=== PATIENT | male | born 1970 | race Caucasian/White ===

== ENCOUNTER 2017-09-08 15:35 | Inpatient (IN) | payer MEDICAID, MEDICARE, OTHER, SELFPAY ==
[~2017-09-08] VITALS: Ht 185.4 cm; Wt 81.2 kg
[2017-09-08 16:00] LABS: BASOPHILS # (AUTO) 0.04 x10^3/uL (0-0.1); BASOPHILS % (AUTO) 1 % (0-1); EOSINOPHILS % (AUTO) 4 % (1-7); LYMPHOCYTES # (AUTO) 1.96 x10^3/uL (1-3.4); LYMPHOCYTES % (AUTO) 35 % (22-44); MD NO; MEAN CORPUSCULAR HEMOGLOBIN 31.1 pg (27.5-34.5); MEAN CORPUSCULAR HGB CONC 33.7 g/dL (33.2-36.2); MEAN PLATELET VOLUME 8.6 fL (7.4-10.4); MONOCYTES # (AUTO) 0.49 x10^3/uL (0.2-0.8); MONOCYTES % (AUTO) 9 % (2-9); NEUTROPHILS # (AUTO) 2.86 x10^3/uL (1.8-6.8); NEUTROPHILS % (AUTO) 52 % (42-75); PLATELET COUNT 217 x10^3/uL (130-400); RED BLOOD COUNT 5.34 x10^6/uL (4.38-5.82); RED CELL DISTRIBUTION WIDTH 12.6 % (9.4-14.8)
[2017-09-08] MEDS ORDERED: METF500T4 PO (16:04)
[2017-09-08 16:07] LABS: INTERNATIONAL NORMALIZED RATIO 1.08 (0.93-1.1); PROTHROMBIN TIME 11.2 Seconds (9.6-11.5)
[2017-09-08 17:09] LABS: TROPONIN I < 0.015 ng/mL (0.000-0.045)
[2017-09-08 17:18] LABS: SALICYLATE LEVEL < 1.7 mg/dL (2.8-20.0)
[2017-09-08 17:19] LABS: ACETAMINOPHEN < 2 mcg/mL (10-30)
[2017-09-08 17:29] LABS: CULTURE INDICATED? NO; MICROSCOPIC NOT IND
[2017-09-08 17:42] LABS: AMPHETAMINE SCREEN, URINE Negative (Negative); BARBITURATE SCREEN, URINE Negative (Negative); BENZODIAZEPINE SCREEN, URINE Negative (Negative); CANNABINOID SCREEN, URINE Negative (Negative); COCAINE SCREEN, URINE Negative (Negative); METHADONE SCREEN, URINE Negative (Negative); OPIATE SCREEN, URINE Negative (Negative)
[2017-09-08] MEDS ORDERED: ONDANSETRON 2MG/ML, 2ML IVPush PRN (19:30)
[2017-09-08] MEDS ORDERED: ACETAMINOPHEN 325 MG TABLET PO PRN (19:30)
[2017-09-08] MEDS ORDERED: POLYETHYLENE GLYCOL 17 GM PACKET PO PRN (19:30)
[2017-09-08] MEDS ORDERED: BISACODYL 10 MG SUPP PR PRN (19:30)
[2017-09-08] MEDS ORDERED: OMNIPAQUE 350 MG/ML, 100ML BOTTLE ONE (19:32)
[2017-09-08 20:03] LABS: HEMOGLOBIN A1C 8.8 % (4.2-6.3)
[2017-09-08] MEDS: SODIUM CHLORIDE FLUSH 10ML SYR IVF SCH (22:30)
[2017-09-08] MEDS: metFORMIN 500 MG TABLET PO SCH (22:30)
[2017-09-08 22:32] VITALS: BP 109/77
[2017-09-08 22:33] VITALS: BP 99/70
[2017-09-08 22:35] VITALS: BP 113/46
[2017-09-08 22:56] LABS: MICROSCOPIC NOT IND
[2017-09-08 22:58] LABS: CULTURE INDICATED? NO
[2017-09-09] VITALS (8 sets, daily range): BP systolic 95–120; BP diastolic 59–79
[2017-09-09 05:10] LABS: BASOPHILS # (AUTO) 0.04 x10^3/uL (0-0.1); BASOPHILS % (AUTO) 1 % (0-1); EOSINOPHILS # (AUTO) 0.24 x10^3/uL (0-0.4); EOSINOPHILS % (AUTO) 4 % (1-7); LYMPHOCYTES # (AUTO) 1.67 x10^3/uL (1-3.4); LYMPHOCYTES % (AUTO) 30 % (22-44); MD NO; MEAN CORPUSCULAR HEMOGLOBIN 30.5 pg (27.5-34.5); MEAN CORPUSCULAR HGB CONC 33.2 g/dL (33.2-36.2); MEAN PLATELET VOLUME 8.8 fL (7.4-10.4); MONOCYTES # (AUTO) 0.51 x10^3/uL (0.2-0.8); MONOCYTES % (AUTO) 9 % (2-9); NEUTROPHILS # (AUTO) 3.17 x10^3/uL (1.8-6.8); NEUTROPHILS % (AUTO) 56 % (42-75); PLATELET COUNT 196 x10^3/uL (130-400); RED BLOOD COUNT 5.06 x10^6/uL (4.38-5.82); RED CELL DISTRIBUTION WIDTH 12.9 % (9.4-14.8)
[2017-09-09 05:20] LABS: ALBUMIN 3.5 g/dL (3.4-5.0); ANION GAP 6 mmol/L (5-15); CALCIUM 8.7 mg/dL (8.5-10.1); CHLORIDE 104 mmol/L (98-107)
[2017-09-09 05:26] LABS: ALANINE AMINOTRANSFERASE 31 U/L (12-78); ALKALINE PHOSPHATASE 98 U/L (45-117); BILIRUBIN,TOTAL 0.5 mg/dL (0.2-1.0); CREATININE 0.99 mg/dL (0.7-1.3); TOTAL PROTEIN 7.1 g/dL (6.4-8.2); TROPONIN I < 0.015 ng/mL (0.000-0.045)
[2017-09-09] MEDS ORDERED: METF10002 PO (05:45)
[2017-09-09] MEDS ORDERED: GLIP10TA13 PO (05:46)
[2017-09-09] MEDS ORDERED: SIMV10TA3 PO (05:46)
[2017-09-09] MEDS: SENNA/DOCUSATE TABLET PO SCH (09:00)
[2017-09-09] MEDS: SODIUM CHLORIDE FLUSH 10ML SYR IVF SCH ×2 (10:11→23:07)
[2017-09-09] MEDS: metFORMIN 500 MG TABLET PO SCH ×2 (10:11→23:07)
[2017-09-09 11:38] LABS: TROPONIN I < 0.015 ng/mL (0.000-0.045)
[2017-09-09] MEDS: HEPARIN 5,000 UNITS/ML, 1ML SQ SCH (17:29)
[2017-09-10 02:00] VITALS: BP 101/71
[2017-09-10] MEDS: HEPARIN 5,000 UNITS/ML, 1ML SQ SCH ×2 (04:39→12:30)
[2017-09-10 08:00] VITALS: BP 104/82
[2017-09-10] MEDS: SODIUM CHLORIDE FLUSH 10ML SYR IVF SCH (09:00)
[2017-09-10] MEDS: SENNA/DOCUSATE TABLET PO SCH (09:00)
[2017-09-10] MEDS: metFORMIN 500 MG TABLET PO SCH (09:15)
== END 2017-09-10 17:09 | disposition home or self-care (01) | DRG 73 ==
LOC: ED 16:49 → EDIP 18:38 → OBSVTOIN 18:38 → 4WST 20:26
PROVIDERS: ADMIT Hospitalist; ATTEND Hospitalist
PROC: 0T9B70Z Drainage of Bladder with Drainage Device, Via Natural or Artificial Opening (ICD-10-PCS; principal; 2017-09-08)
DX: G90.8 Other disorders of autonomic nervous system (principal); G93.40 Encephalopathy, unspecified; E11.65 Type 2 diabetes mellitus with hyperglycemia; R53.1 Weakness; Z82.3 Family history of stroke; G31.84 Mild cognitive impairment of uncertain or unknown etiology; R55 Syncope and collapse
CPT/HCPCS: 36415; 70450; 71275; 80047; 80053; 80307; 80329; 81003; 82962; 83036; 84484; 85025; 85379; 85610; 85730; 87040; 93005; 93306; 93880; 99285; J1644; Q9967; G0480